=== PATIENT | male | born 1980 | race Hispanic/Latino ===

== ENCOUNTER → 2018-07-10 | Outpatient (CLI) | payer OTHER ==
[~2018-07-10] MED LIST: /BUSP5TA OR; /CELE20CA PO; /CLON1TA OR; /MOXI40TA OR; /ONDA4TA OR; ACET65TA OR; ALPR0.5T3 PO; AMIT25TA2 OR; AMIT25TA2 PO; CATA0.1T PO; CHLO25CA PO; CIPR500T89 PO; CLON0.5T PO; COLA100C2 OR; DEPA500T OR; DEPA500T2 PO; DESYREL PO; DIAZ5TAB PO; FISH1000 OR; FLAG500T PO; HYDR25TA8 OR; HYDR4TAB OR; IMIT6INJ SC; INDO25SU OR; KLON0.5T OR; LIDO5DIS EX; LIDO5DIS TD; LOVAZA PO; MECL25TA2 OR; MICR10CA PO; MORP15TA2 PO; MS C15TA5 OR; MS CONTIN OR; NAPR500T OR; OMEP20CA3 PO; OMEP40CA2 PO; OXYC10TA97 PO; PAIN325T OR; PERC5TAB8 OR; PERC7.5T8 OR; PHEN 25 PO; PREG100CA PO; PRIL40CA OR; PROM25TA PO; REGL10TA6 PO; SENO8.6T9 PO; SERT50TA2 OR; TOPI25TA2 OR; TOPI50TA PO; TRAM37.5 PO; TRAZ100T OR; TRAZ100T PO; TRAZO50TA PO; ULTR50TA PO; VITA500C OR; VITAMIN C PO; WELLTAB4 PO; ZANA4CAP OR; ZANA4CAP PO; ZOFR8TAB PO; ZOLP-189 PO; [UNRECOGNIZED DRUG - OTHER] PO; [UNRECOGNIZED DRUG - OTHER] PO; compazine PO
--- NOTE | 2018-07-10 14:01 | REP ---
MRI RIGHT KNEE: TECHNIQUE: Axial proton density fat saturation, sagittal proton density T2 STIR, water excitation, coronal proton density, proton density fat saturation. COMPARISON: 10/24/2011 Both the medial and lateral menisci show no evidence of acute tear. Cruciate and collateral ligaments are intact. The extensor mechanism is intact. There is mild global chondromalacia, particularly in the medial and lateral joint compartments. No osteochondral defect is seen. There are mild subchondral marrow edema seen posteriorly in the lateral femoral condyle. There is a small joint effusion, with a small amount of fluid extending into the medial popliteal fossa between the semimembranosus and the medial head of the gastrocnemius. IMPRESSION: No acute meniscal tear. Cruciate and collateral ligaments intact. Mild global chondromalacia. There is mild nonspecific subchondral marrow edema posteriorly in the lateral femoral condyle. Small joint effusion. Electronically Signed by Clayton Horne MD 07/10/2018 07:27 P
--- NOTE | 2018-07-10 14:32 | REP ---
MRI RIGHT ANKLE: TECHNIQUE: Sagittal proton density, STIR, axial proton density fat sat, T1, coronal proton density, STIR. There is mild ill-defined high signal in the distal Achilles tendon having an appearance most consistent with strain or tendonitis. Anterior tibial, posterior tibial, flexor digitorum longus, and peroneal tendons are all intact. Moderate fluid is seen focally surrounding the flexor hallucis longus tendon posterior to the talus. This may represent focal tenosynovitis or a partial tear. Anterior and posterior talofibular, calcaneofibular, and deltoid ligaments appear intact. Plantar fascia demonstrates no abnormal signal. Plantar tendon is intact. There is no ganglion cyst. Sinus tarsi appears unremarkable with no abnormal signal. There is no bone marrow edema or occult fracture. No osteochondral defect is seen at the tibiotalar joint. IMPRESSION: Tendonitis or strain of the distal Achilles tendon. Moderate fluid surrounding the flexor hallucis longus tendon posterior to the talus may represent focal tenosynovitis or partial tear. No other evidence of tendon or ligament tear. No occult fracture. Electronically Signed by Clayton Horne MD 07/10/2018 07:27 P
== END ==
LOC: M RAD 11:09
PROVIDERS: ATTEND Internal Medicine
DX: M25.461 Effusion, right knee (principal); M94.261 Chondromalacia, right knee; M25.471 Effusion, right ankle

== ENCOUNTER 2024-06-06 17:22 | Emergency (ER) | payer OTHER ==
[~2024-06-06] VITALS: Ht 177.8 cm; Wt 90.0 kg
[~2024-06-06 17:22] MED LIST changes: -/CELE20CA PO; -/CLON1TA OR; -/MOXI40TA OR; -/ONDA4TA OR; +AVEL1TAB2 OR; +CELE1CAP4 PO; +CLON-412 OR; +ONDA-1 OR; +ONDA-227 PO; +PROM-190 PO; -PROM25TA PO; +TRAZ1TAB36 PO; -TRAZO50TA PO; -ZOFR8TAB PO
[2024-06-06 17:56] LABS: BASO # 0.1 10^3/uL (0.0-0.2); BASO % 0.6 % (0.0-1.0); EOS # 0.1 10^3/uL (0.0-0.5); HEMATOCRIT 42.1 % (42.0-52.0); HEMOGLOBIN 14.3 g/dl (13.5-17.5); LYMPH # 3.6 10^3/uL (1.5-5.0); LYMPH % 40.7 % (24.0-44.0); MEAN CORPUSCULAR HEMOGLOBIN 31.4 pg (27.0-33.0); MEAN CORPUSCULAR VOLUME 92.5 fl (80.0-96.0); MONO # 0.5 10^3/uL (0.0-0.8); MONO % 5.3 % (2.0-8.0); NEUTROPHILS # 4.6 10^3/uL (1.5-8.5); NEUTROPHILS % 52.2 % (36.0-66.0); PLATELET COUNT, AUTOMATED 320 10^3/uL (150-450); RED BLOOD COUNT 4.55 10^6/uL (4.30-6.10); WHITE BLOOD COUNT 8.8 10^3/uL (4.0-10.0)
[2024-06-06] MEDS: ONDANSETRON 4MG 2ML VIAL IV ONE (18:09)
[2024-06-06] MEDS: MORPHINE 4 MG/ML 1ML VIAL IV ONE (18:09)
[2024-06-06 18:24] LABS: ALBUMIN 4.1 G/DL (3.2-5.2); BILIRUBIN,DIRECT 0.2 MG/DL (<0.4); BILIRUBIN,TOTAL 0.5 MG/DL (0.3-1.2); TOTAL PROTEIN 7.4 G/DL (5.7-8.2)
[2024-06-06] MEDS: MORPHINE 2 MG/ML 1ML VIAL IV ONE (18:37)
[2024-06-06] MEDS ORDERED: ISOVUE-370 76% 100ML VIAL As Ordered ONE (19:35)
[2024-06-06 19:41] LABS: Trichomonas vaginalis (AMP) NOT DETECTED (NEGATIVE)
[2024-06-06 20:03] LABS: GC DNA AMPLIFICATION NEGATIVE (NEGATIVE)
[2024-06-06] MEDS: HYDROMORPHONE HCL 0.5 MG/ 0.5 ML SYRINGE IV ONE (20:05)
[2024-06-06] MEDS: KETOROLAC 30 MG/ML 1ML VIAL IV ONE (21:39)
[2024-06-06] MEDS: TAMSULOSIN 0.4 MG CAP PO ONE (21:39)
[2024-06-06] MEDS ORDERED: IBUP-1022 PO (23:43)
[2024-06-06] MEDS ORDERED: ONDA-282 PO (23:43)
[2024-06-06] MEDS ORDERED: FLOM0.4C39 PO (23:43)
[2024-06-06 23:50] VITALS: BP 124/73; TEMP 98.6; O2SAT 99
== END 2024-06-07 00:04 | disposition home or self-care (01) ==
LOC: M ED 17:22
DX: N13.2 Hydronephrosis with renal and ureteral calculous obstruction (principal); K76.0 Fatty (change of) liver, not elsewhere classified; K44.9 Diaphragmatic hernia without obstruction or gangrene; R16.0 Hepatomegaly, not elsewhere classified; K21.9 Gastro-esophageal reflux disease without esophagitis; F41.9 Anxiety disorder, unspecified; F32.A Depression, unspecified; G43.909 Migraine, unspecified, not intractable, without status migrainosus; H81.4 Vertigo of central origin; Z79.83 Long term (current) use of bisphosphonates; Z79.899 Other long term (current) drug therapy; Z79.2 Long term (current) use of antibiotics; Z87.820 Personal history of traumatic brain injury
CPT/HCPCS: 74177; 76870; 80047; 80076; 81001; 83690; 85025; 87661; 87810; 87850; 93976; 96374; 96375; 96376; 99284; J1171; J1885; J2405; Q9967